=== PATIENT | male | born 1955 | race Hispanic/Latino ===

== ENCOUNTER 2020-06-10 20:03 | Emergency (ER) | payer OTHER ==
[2020-06-10 20:36] LABS: BASOPHILS % (AUTO) 0.6 % (0.0-5.0); EOSINOPHILS % (AUTO) 2.2 % (0.0-8.0); HEMATOCRIT 44.5 % (42-54); LYMPHOCYTES % (AUTO) 31.6 % (21.0-51.0); MEAN CORPUSCULAR HEMOGLOBIN 30.5 pg (27.0-33.0); MEAN CORPUSCULAR HGB CONC 33.5 g/dL (32.0-36.0); MEAN CORPUSCULAR VOLUME 91.2 fL (79-99); MONOCYTES % (AUTO) 8.6 % (3.0-13.0); NEUTROPHILS % (AUTO) 56.5 % (40.0-77.0); PLATELET COUNT (AUTO) 342 K/uL (130-400); RED BLOOD CELL COUNT(AUTO) 4.88 MIL/uL (4.50-6.20); RED CELL DISTRIBUTION WIDTH 12.5 % (11.0-15.5); WHITE BLOOD COUNT (AUTO) 10.8 K/uL (4.8-10.8)
[2020-06-10 20:49] LABS: CREATININE 1.1 mg/dL (0.5-1.5); POTASSIUM 4.2 mmol/L (3.5-5.1)
[2020-06-10 20:51] LABS: INR 0.88 (0.85-1.15); PARTIAL THROMBOPLASTIN TIME 24.7 SEC (26.3-35.5); PROTHROMBIN TIME 9.5 SEC (9.6-11.6)
[2020-06-10 20:54] LABS: ALBUMIN 3.8 g/dL (3.5-5.0); BILIRUBIN,TOTAL 0.6 mg/dL (0.2-1.0); TOTAL PROTEIN, SERUM 7.7 g/dL (6.0-8.3)
[2020-06-10] MEDS ORDERED: ORPHENADRINE CITRATE 30 MG/ML ML ONE (20:59)
[2020-06-10] MEDS ORDERED: PANTOPRAZOLE 40 MG/VIAL ONE (21:00)
[2020-06-10] MEDS ORDERED: KETOROLAC TROMETHAMINE 30MG/ML ONE (21:00)
[2020-06-10] MEDS ORDERED: FAMOTIDINE/PF 20 MG/2 ML VIAL IV ONE (21:00)
== END 2020-06-10 22:40 | disposition home or self-care (01) ==
LOC: EDH 20:03
DX: S29.012A Strain of muscle and tendon of back wall of thorax, initial encounter (principal); M62.838 Other muscle spasm; E11.9 Type 2 diabetes mellitus without complications; I10 Essential (primary) hypertension; E78.00 Pure hypercholesterolemia, unspecified; X58.XXXA Exposure to other specified factors, initial encounter; Y93.89 Activity, other specified; Y92.89 Other specified places as the place of occurrence of the external cause; Y99.8 Other external cause status
CPT/HCPCS: 36415; 71045; 80053; 83690; 84484; 85025; 85610; 85730; 93005; 96374; 96375; 99285; C9113; J1885; J2360; J3490